=== PATIENT | female | born 1995 | race Caucasian/White ===

== ENCOUNTER 2022-05-26 07:09 | Day surgery (SDC) | payer BC ==
[2022-05-26] MEDS ORDERED: CEFAZOLIN SODIUM 1 GM/VIAL ONE (07:29)
[2022-05-26] MEDS: Ringers Lactate 1,000 ML IV ONE (07:35)
[2022-05-26] MEDS ORDERED: BACITRACIN OINTMENT 14 GM TUBE TOP ONE (07:42)
[2022-05-26] MEDS ORDERED: propofoL 200 MG/20 ML VIAL IV ONE (07:42)
[2022-05-26] MEDS ORDERED: LIDOCAINE 1% W/EPI 1:100,000 30 ML VIAL ONE (07:42)
[2022-05-26] MEDS ORDERED: dexAMETHasone 10 MG/ML VIAL ONE (07:43)
[2022-05-26] MEDS ORDERED: MIDAZOLAM HCL 2 MG/2 ML INJ ONE (07:43)
[2022-05-26] MEDS ORDERED: ONDANSETRON 4 MG/2 ML VIAL ONE (07:43)
[2022-05-26] MEDS ORDERED: KETOROLAC 30 MG/ML INJ ONE (07:43)
[2022-05-26] MEDS ORDERED: FENTANYL CITR 100 MCG/2 ML ONE (07:43)
[2022-05-26] MEDS ORDERED: LIDOCAINE 2% MPF 5 ML VIAL ONE (07:43)
[2022-05-26 07:55] VITALS: O2SAT 100
[2022-05-26] MEDS ORDERED: EPHEDRINE SULF 50 MG/ML VIAL ONE (08:28)
[2022-05-26 08:39] LABS: Urine Specific Gravity/Preg >1.030 (1.005-1.030)
[2022-05-26 10:14] VITALS: BP 124/75; TEMP 97.7
--- NOTE | 2022-05-26 10:46 | OP ---
Date of Procedure: 05/26/2022 Surgeon: CAREY LUCERO Preoperative Diagnosis: Right upper neck mass - soft tissue. Postoperative Diagnosis: Right upper neck mass - soft tissue. Procedures: 1.Excisional biopsy of right upper soft tissue neck mass with facial nerve monitoring with the [employer] on[employer] facial nerve monitoring system. 2.Intermediate wound closure. Anesthesia: General LMA anesthesia was administered. I also infiltrated approximately 5 mL of 1% li docaine with 1:100,000 epinephrine around the incision site. Estimated Blood Loss: Scant, less than 2 mL. Specimens: Obtained from the right upper neck, which was a subcutaneous soft tissue mass measuring a pproximately 1.5 cm leaving a wound defect of approximately 2.0 cm and closure length of 2.3 cm. Complications: None. Disposition: Stable. The patient tolerated the procedure well. Indication For Procedure: The patient is a pleasant 26-year-old female, who presented to my outpatie nt clinic with an acutely enlarged right upper neck mass that appeared approximately 2 months ago. T his lesion was superficial and palpable, but noted to be close to the tail of the parotid gland and p ossibly the trunk of the facial nerve. These were indications to bring the patient to the operative suite for the above-mentioned procedure. She understood. All questions were answered. Risks versus benefits and complications were explained in detail and a consent form was signed which was placed i n the chart. Description Of Procedure: The patient was transferred from the preoperative holding area to the oper ative suite by Department of Anesthesia, placed on the operating table supine, sedated and an LMA was placed. I infiltrated approximately 5 mL of 1% lidocaine with 1:100,000 epinephrine around the inci constance site. We then placed the orbicularis oculi and orbicularis auris and grounding electrodes of th e facial nerve monitor to the patient. These electrodes were tested and found to be functioning appr opriately. The patient was then sterilely prepped and draped. Next, an elliptical incision was made through the skin down to the subcutaneous tissue with a #15 lonnie de scalpel and then I was easily able to find the lesion after retracting the skin and subcutaneous t issue with a [place]. I dissected around the lesion and then once removed, I submitted to pathology for evaluation in formalin. There was no evidence of bleeding, is scant less than 2 mL. Hemostasis was achieved with monopolar electrocautery on the twentieth setting of coagulation. I then reapproxi mated the subcutaneous tissues with 4-0 Monocryl in a simple interrupted fashion. I then used a [place] cryl to place 2 simple interrupted sutures to close the epidermis. I then used Dermabond to close th e remaining epidermis. She tolerated the procedure well and will be discharged home on an over-the-c ounter analgesia medication and will follow up in 1 week or sooner if needed. OBED/COLETTE Voice ID: [id number] Report ID: [id number]
== END 2022-05-26 09:53 | disposition home or self-care (01) ==
LOC: OR 07:09
PROVIDERS: ATTEND Otolaryngology Facial Plastic Surgery
PROC: 0JB40ZZ Excision of Right Neck Subcutaneous Tissue and Fascia, Open Approach (ICD-10-PCS; principal; 2022-05-26 08:30)
DX: R59.0 Localized enlarged lymph nodes (principal)
CPT/HCPCS: 11422; 81025; 88305; J2704; J2001; J2250; J3010; J1100; J7120; J2405; J0690; 88304